=== PATIENT | male | born 2000 | race Caucasian/White ===

== ENCOUNTER 2021-07-16 16:56 | Emergency (ER) | payer SELFPAY ==
[~2021-07-16] VITALS: Ht 177.8 cm; Wt 60.3 kg
--- NOTE | 2021-07-16 17:01 | NUR ---
PT TAKEN TO ER BED 4.
[2021-07-16 17:05] VITALS: BP 131/82
--- NOTE | 2021-07-16 17:05 | NUR ---
20 Y/O MALE THAT IDENTIFIES FEMALE BIBA FROM [facility] C/O LAC TO CHIN AND LEFT SHOULDER AND LEFT FA S/P SLIPPING AND FALL OFF SKATEBOARD. PT STATES PAIN 7/10 WITH MOVEMENT. PT STATES THEY TOOK 2 IBUPROFEN WITH RELIEF. DENIES N/V, DENIES FEVER/CHILLS. DENIES PMH RX: ESTROGEN, TESTOSTERONE ELLA FOR TRANSITIONING TREATMENT NKA
--- NOTE | 2021-07-16 18:05 | NUR ---
Kalin gavin in [facility] - 07/16/21 at 1817 by [facility] NARCISO Pinon at bedside for laceration repair.
--- NOTE | 2021-07-16 18:05 | NUR ---
NARCISO Hollis at bedside for laceration repair.
[2021-07-16] MEDS: LIDOCAINE MPF 1% 10 MG/ML VIAL INJ ONE (18:16)
[2021-07-16] MEDS: BACITRACIN OINT 500 UNITS/GM PKT TP ONE (18:16)
[2021-07-16] MEDS ORDERED: BACI1PAC6 TP (18:23)
[2021-07-16] MEDS ORDERED: IBUP-2213 PO (18:23)
--- NOTE | 2021-07-16 18:48 | NUR ---
Patient discharged with v/s stable. Written and verbal after care instructions LACERATION CARE given and explained. Patient alert, oriented and verbalized understanding of instructions. Ambulatory with steady gait. All questions addressed prior to discharge. ID band removed. Patient advised to follow up with PMD. Rx of BACITRACIN ZINC AND IBUPROFEN given. Patient educated on indication of medication including possible reaction and side effects. Opportunity to ask questions provided and answered.
== END 2021-07-16 18:48 | disposition home or self-care (01) ==
LOC: MED 16:56
DX: S01.81XA Laceration without foreign body of other part of head, initial encounter (principal); V00.131A Fall from skateboard, initial encounter; Y93.89 Activity, other specified; Y92.89 Other specified places as the place of occurrence of the external cause; Y99.8 Other external cause status
CPT/HCPCS: 12011; 99282; J2001